=== PATIENT | female | born 1950 | race Two or more races ===

== ENCOUNTER 2017-06-28 17:28 | Emergency (ER) | payer MEDICARE, MEDICAID ==
[~2017-06-28] VITALS: Ht 170.2 cm; Wt 116.0 kg
[~2017-06-28 17:28] MED LIST: ALBU6.7H INH; HTN MEDS; TRAMADOL
[2017-06-28 18:45] VITALS: BP 199/98
== END 2017-06-28 21:21 | disposition left against medical advice (07) ==
LOC: ER 18:05
DX: G89.29 Other chronic pain (principal); M54.9 Dorsalgia, unspecified; M25.561 Pain in right knee
CPT/HCPCS: 99281